=== PATIENT | male | born 2005 | race Caucasian/White ===

== ENCOUNTER 2023-08-31 23:05 | Emergency (ER) | payer OTHER ==
[~2023-08-31] VITALS: Ht 175.3 cm; Wt 59.0 kg
[2023-08-31 23:43] VITALS: BP 128/69; PULSE 106; RESP 17; TEMP 99.4; O2SAT 96
[2023-09-01] MEDS ORDERED: predniSONE 20 MG TAB PO ONE (00:50)
[2023-09-01] MEDS ORDERED: ALBUTEROL 0.083% 2.5 MG/3 ML NEBU INH ONE (00:50)
[2023-09-01 00:57] VITALS: PULSE 96; RESP 18; O2SAT 94; O2SAT 96
[2023-09-01] MEDS ORDERED: ALBU6.7H6 IH (01:12)
[2023-09-01] MEDS ORDERED: PRED20TA5 PO (01:12)
[2023-09-01 01:15] VITALS: BP 128/69; PULSE 96; RESP 18; TEMP 99.4; O2SAT 94
== END 2023-09-01 01:15 | disposition home or self-care (01) ==
LOC: MED 23:05
DX: J45.901 Unspecified asthma with (acute) exacerbation (principal); Z79.899 Other long term (current) drug therapy
CPT/HCPCS: 94640; 99283; J7512; J7613